=== PATIENT | female | born 1950 | race Caucasian/White ===

== ENCOUNTER 2021-07-25 15:04 | Inpatient (IN) ==
[2021-07-25] MEDS ORDERED: MIDAZOLAM 2 MG/2 ML VIAL ONE (15:29)
[2021-07-25] MEDS ORDERED: MIDAZOLAM 2 MG/2 ML VIAL IV ONE (15:30)
[2021-07-25] MEDS ORDERED: ALBUTEROL 2.5 MG/3 ML NEB RESP TX PRN (15:31)
[2021-07-25] MEDS ORDERED: SODIUM CHLORIDE 0.9% 1,000 ML IV ONE ×2 (15:33→17:06)
[2021-07-25] MEDS ORDERED: SODIUM CHLORIDE 0.9% 1,000 ML IV PRN (15:40)
[2021-07-25] MEDS: NOREPINEPHRINE 8 MG in SODIUM CHLORIDE 0.9% 242 ML IV PRN ×2 (16:00→21:35)
[2021-07-25] MEDS: PANTOPRAZOLE 40 MG VIAL IV SCH (16:06)
[2021-07-25 16:25] LABS: Basophils % 0.2 % (0.0-0.8); Eosinophils % 0.1 % (0.00-10.9); Hemoglobin 10.1 GM/DL (12.0-16.0); Immature Granulocytes % 3.3 %; Immature Granulocytes Absolute 0.43 #; Lymphocytes # 0.8 10*3/uL (1.4-4.0); Lymphocytes % 6.4 % (21.3-54.2); Mean Corpuscular HGB Conc 31.6 GM/DL (32-36); Mean Corpuscular Volume 88.9 FL (87-102); Mean Platelet Volume 12.4 FL (9.6-12.0); Monocytes % 7.4 % (1.7-12.7); Neutrophils % 82.6 % (38.7-73.9); Platelet Count 183 T/CUMM (130-400); Red Cell Distribution Width 17.9 % (9.3-17.3); White Blood Count 12.8 T/CUMM (4-12)
[2021-07-25 16:47] LABS: Arterial Base Excess iSTAT -16 MMOL/L (-2.5-2.5); Arterial Bicarbonate iSTAT 9.3 MMOL/L (20-26); Arterial O2 Saturation iSTAT 97 % (95-100); Arterial PCO2 iSTAT 21 MM HG (35-48); Arterial PO2 iSTAT 99 MM HG (80-95); Arterial Total CO2 iSTAT 10 MMO/L (23-27); Arterial pH iSTAT 7.261 (7.35-7.45)
[2021-07-25 16:47] LABS: Albumin 1.7 G/DL (3.4-5.0); Bilirubin,Total 0.6 MG/DL (0.20-1.00); Osmolality,Calculated 308.1 MOS/KG (273-304); Potassium 5.2 MMOL/L (3.5-5.1); Total Protein 5.4 G/DL (6.4-8.2)
[2021-07-25] MEDS ORDERED: MORPHINE 2 MG/1 ML SYRINGE IV ONE (16:47)
[2021-07-25] MEDS ORDERED: SODIUM CHLORIDE 0.9% 1,100 ML IV ONE (17:23)
[2021-07-25 17:30] LABS: Bilirubin,Urine Small mg/dL (Negative); Blood, Urine Large mg/dL (Negative); Glucose,Urine (UA) Negative (Negative); Ketones,Urine Trace mg/dL (Negative); Nitrite,Urine Positive (Negative); Protein,Urine >=300 mg/dL (Negative); Urine Appearance Cloudy (Clear); Urine Color Red (Yellow); Urine pH 8.5 (4.5-8.0)
[2021-07-25] MEDS ORDERED: SODIUM BICARBONATE 50 MEQ/50 ML VIAL IV ONE (17:30)
[2021-07-25 17:31] LABS: Eosinophils 1 % (0-10); Lymphocytes 4 % (20-55); Total Cells Counted 100
[2021-07-25 17:31] LABS: Urine Urobilinogen 0.2 eU/dL (<2.0)
[2021-07-25 17:32] LABS: Burr Cells Slight
[2021-07-25 18:05] LABS: Bacteria,Urine Few /HPF (Few); Mucus,Urine Moderate /LPF (Occasional); RBC,Urine 968 /HPF (0-4)
[2021-07-25] MEDS: cefTRIAXone 1,000 MG in SODIUM CHLORIDE 0.9% 100 ML IV SCH (18:50)
[2021-07-25 19:06] LABS: PT Patient Result > 178.9 SECS (10.5-12.0)
[2021-07-25 19:08] LABS: INR > 17.6
[2021-07-25] MEDS ORDERED: PHYTONADIONE 10 MG/1 ML AMP SUBCUT ONE (19:17)
[2021-07-25] MEDS: ALBUTEROL/IPRATROPIUM 3 ML NEB RESP TX SCH (19:50)
[2021-07-25] MEDS: SODIUM BICARB INJ 150 MEQ in STERILE WATER INJ 850 ML IV SCH (19:59)
[2021-07-25] MEDS ORDERED: NOREPINEPHRINE 4 MG/4 ML VIAL IV ONE (21:36)
[2021-07-25 22:25] LABS: Hematocrit 28.1 VOL% (35.7-47.0)
[2021-07-25 22:35] LABS: INR 3.8; PT Patient Result 38.2 SECS (10.5-12.0)
[2021-07-25 22:42] LABS: Calcium 7.5 MG/DL (8.5-10.1); Osmolality,Calculated 319.9 MOS/KG (273-304); Potassium 4.5 MMOL/L (3.5-5.1)
[2021-07-26] MEDS: ALBUTEROL/IPRATROPIUM 3 ML NEB RESP TX SCH ×4 (00:23→18:53)
[2021-07-26] MEDS: NOREPINEPHRINE 8 MG in SODIUM CHLORIDE 0.9% 242 ML IV PRN ×2 (01:30→05:27)
[2021-07-26] MEDS: SODIUM BICARB INJ 150 MEQ in STERILE WATER INJ 850 ML IV SCH (05:27)
[2021-07-26 05:41] LABS: Basophils % 0.3 % (0.0-0.8); Eosinophils % 0.1 % (0.00-10.9); Hematocrit 27.7 VOL% (35.7-47.0); Hemoglobin 9.1 GM/DL (12.0-16.0); Immature Granulocytes % 4.7 %; Immature Granulocytes Absolute 0.61 #; Lymphocytes # 0.8 10*3/uL (1.4-4.0); Lymphocytes % 6.3 % (21.3-54.2); Mean Corpuscular HGB Conc 32.9 GM/DL (32-36); Mean Platelet Volume 11.6 FL (9.6-12.0); Monocytes # 0.9 10*3/uL (0.11-0.8); Monocytes % 6.5 % (1.7-12.7); Neutrophils % 82.1 % (38.7-73.9); Platelet Count 199 T/CUMM (130-400); Red Blood Count 3.22 MC/CUMM (3.8-5.5); Red Cell Distribution Width 17.8 % (9.3-17.3); White Blood Count 13.1 T/CUMM (4-12)
[2021-07-26 06:01] LABS: Calcium 7.7 MG/DL (8.5-10.1); INR 5.5; Osmolality,Calculated 315.7 MOS/KG (273-304); Potassium 4.3 MMOL/L (3.5-5.1)
[2021-07-26 06:05] LABS: Band Neutrophils 1 % (0-10); Lymphocytes 8 % (20-55); Platelet Estimate Normal; Poikilocytosis Slight; Total Cells Counted 100
[2021-07-26 06:06] LABS: Acanthocytes 1+
[2021-07-26] MEDS: SODIUM BICARB INJ 100 MEQ in STERILE WATER INJ 900 ML IV SCH ×4 (10:42→21:33)
[2021-07-26] MEDS ORDERED: ZINC OXIDE 16% PASTE 57 GM TUBE TOP PRN (12:03)
[2021-07-26] MEDS: metroNIDAZOLE INJ 500 MG/100 ML PREMIX IV SCH ×2 (14:30→21:33)
[2021-07-26] MEDS: LEVOFLOXACIN INJ 750 MG/150 ML PREMIX IV SCH (15:30)
[2021-07-26 16:41] LABS: Basophils % 0.2 % (0.0-0.8); Eosinophils % 0.2 % (0.00-10.9); Hematocrit 26.5 VOL% (35.7-47.0); Hemoglobin 8.7 GM/DL (12.0-16.0); Immature Granulocytes % 4.9 %; Lymphocytes # 0.8 10*3/uL (1.4-4.0); Lymphocytes % 9.8 % (21.3-54.2); Mean Corpuscular HGB Conc 32.8 GM/DL (32-36); Mean Corpuscular Volume 85.2 FL (87-102); Mean Platelet Volume 11.6 FL (9.6-12.0); Monocytes # 0.4 10*3/uL (0.11-0.8); Monocytes % 4.4 % (1.7-12.7); Neutrophils % 80.5 % (38.7-73.9); Platelet Count 187 T/CUMM (130-400); Red Blood Count 3.11 MC/CUMM (3.8-5.5); Red Cell Distribution Width 17.7 % (9.3-17.3); White Blood Count 8.2 T/CUMM (4-12)
[2021-07-26 17:03] LABS: Albumin 1.6 G/DL (3.4-5.0); Bilirubin,Total 0.6 MG/DL (0.20-1.00); Calcium 7.9 MG/DL (8.5-10.1); Osmolality,Calculated 305.4 MOS/KG (273-304); Potassium 3.6 MMOL/L (3.5-5.1); Total Protein 5.1 G/DL (6.4-8.2)
[2021-07-26] MEDS: ACETAMINOPHEN 325 MG TABLET PO PRN (17:15)
[2021-07-26] MEDS: PANTOPRAZOLE 40 MG VIAL IV SCH (17:58)
[2021-07-26] MEDS: cefTRIAXone 1,000 MG in SODIUM CHLORIDE 0.9% 100 ML IV SCH (17:58)
[2021-07-26] MEDS: MORPHINE 2 MG/1 ML SYRINGE IV PRN ×2 (19:36→23:30)
[2021-07-26] MEDS: QUEtiapine 100 MG TABLET PO SCH (21:33)
[2021-07-27] MEDS: ALBUTEROL/IPRATROPIUM 3 ML NEB RESP TX SCH ×4 (00:22→18:53)
[2021-07-27] MEDS: SODIUM BICARB INJ 100 MEQ in STERILE WATER INJ 900 ML IV SCH ×2 (03:23→06:04)
[2021-07-27 05:00] LABS: Basophils % 0.2 % (0.0-0.8); Eosinophils # 0.1 10*3/uL (0.0-0.87); Eosinophils % 1.2 % (0.00-10.9); Hematocrit 25.8 VOL% (35.7-47.0); Hemoglobin 8.6 GM/DL (12.0-16.0); Immature Granulocytes % 6.6 %; Immature Granulocytes Absolute 0.56 #; Lymphocytes % 12.2 % (21.3-54.2); Mean Corpuscular HGB Conc 33.3 GM/DL (32-36); Mean Corpuscular Volume 84.9 FL (87-102); Mean Platelet Volume 11.2 FL (9.6-12.0); Monocytes # 0.5 10*3/uL (0.11-0.8); Neutrophils % 73.8 % (38.7-73.9); Platelet Count 165 T/CUMM (130-400); Red Blood Count 3.04 MC/CUMM (3.8-5.5); Red Cell Distribution Width 17.4 % (9.3-17.3); White Blood Count 8.5 T/CUMM (4-12)
[2021-07-27 05:11] LABS: PT Patient Result 21.4 SECS (10.5-12.0)
[2021-07-27 05:22] LABS: Eosinophils 1 % (0-10); Hypochromia Slight; Lymphocytes 12 % (20-55); Metamyelocytes 2 %; Platelet Estimate Normal; Total Cells Counted 100
[2021-07-27 05:22] LABS: Albumin 1.5 G/DL (3.4-5.0); Bilirubin,Total 0.7 MG/DL (0.20-1.00); Calcium 7.8 MG/DL (8.5-10.1); Osmolality,Calculated 296.4 MOS/KG (273-304); Potassium 3.5 MMOL/L (3.5-5.1)
[2021-07-27 05:23] LABS: Microcytosis Slight
[2021-07-27] MEDS: metroNIDAZOLE INJ 500 MG/100 ML PREMIX IV SCH ×3 (05:52→21:46)
[2021-07-27] MEDS ORDERED: WARFARIN 4 MG TABLET PO ONE (08:17)
[2021-07-27] MEDS: MORPHINE 2 MG/1 ML SYRINGE IV PRN (09:07)
[2021-07-27] MEDS: HEPARIN DRIP 25,000 UNITS/500 ML PREMIX IV SCH (09:54)
[2021-07-27] MEDS: METOPROLOL SUCCINATE XL 25 MG TABLET PO SCH (12:54)
[2021-07-27 14:09] LABS: Bacteria,Urine Occasional /HPF (Few); Mucus,Urine Occasional /LPF (Occasional); RBC,Urine 163 /HPF (0-4); Squamous Epithelial Cell,Urine Few /HPF (0-10); Triple Phosphate Crystal,Urine Occasional /HPF (Few)
[2021-07-27 14:10] LABS: Glucose,Urine (UA) 100 mg/dL (Negative); Ketones,Urine Negative (Negative); Nitrite,Urine Negative (Negative); Protein,Urine >=300 mg/dL (Negative); Urine Appearance Cloudy (Clear); Urine Color Light Red (Yellow); Urine pH >= 9.0 (4.5-8.0)
[2021-07-27 14:11] LABS: Bilirubin,Urine Small mg/dL (Negative); Blood, Urine Large mg/dL (Negative); Urine Urobilinogen 0.2 eU/dL (<2.0)
[2021-07-27] MEDS: LEVOFLOXACIN INJ 750 MG/150 ML PREMIX IV SCH (15:49)
[2021-07-27] MEDS: cefTRIAXone 1,000 MG in SODIUM CHLORIDE 0.9% 100 ML IV SCH (16:19)
[2021-07-27] MEDS: QUEtiapine 100 MG TABLET PO SCH (21:46)
[2021-07-28] MEDS: ALBUTEROL/IPRATROPIUM 3 ML NEB RESP TX SCH ×4 (00:30→19:00)
[2021-07-28] MEDS: HEPARIN DRIP 25,000 UNITS/500 ML PREMIX IV SCH ×2 (03:10→09:23)
[2021-07-28] MEDS: metroNIDAZOLE INJ 500 MG/100 ML PREMIX IV SCH ×3 (05:47→21:56)
[2021-07-28 06:01] LABS: INR 1.7; PT Patient Result 18.2 SECS (10.5-12.0)
[2021-07-28 06:09] LABS: Calcium 8.3 MG/DL (8.5-10.1); Osmolality,Calculated 291.1 MOS/KG (273-304); Potassium 3.3 MMOL/L (3.5-5.1)
[2021-07-28 06:18] LABS: Basophils % 0.2 % (0.0-0.8); Eosinophils # 0.1 10*3/uL (0.0-0.87); Eosinophils % 0.4 % (0.00-10.9); Hematocrit 25.1 VOL% (35.7-47.0); Hemoglobin 8.2 GM/DL (12.0-16.0); Immature Granulocytes % 6.7 %; Immature Granulocytes Absolute 1.08 #; Lymphocytes # 1.2 10*3/uL (1.4-4.0); Lymphocytes % 7.6 % (21.3-54.2); Mean Corpuscular HGB Conc 32.7 GM/DL (32-36); Mean Corpuscular Volume 86.6 FL (87-102); Mean Platelet Volume 11.9 FL (9.6-12.0); Monocytes # 0.7 10*3/uL (0.11-0.8); Monocytes % 4.5 % (1.7-12.7); Neutrophils % 80.6 % (38.7-73.9); Platelet Count 164 T/CUMM (130-400); Red Cell Distribution Width 16.9 % (9.3-17.3); White Blood Count 16.1 T/CUMM (4-12)
[2021-07-28] MEDS ORDERED: MAGNESIUM SULF RIDER 2 GM/50 ML PREMIX IV ONE (06:23)
[2021-07-28] MEDS ORDERED: POTASSIUM CHLORIDE 20 MEQ TABLET PO PRN ×2 (06:26→08:25)
[2021-07-28] MEDS ORDERED: MAGNESIUM SULF RIDER 2 GM/50 ML PREMIX IV PRN (08:25)
[2021-07-28] MEDS ORDERED: MAGNESIUM SULF RIDER 4 GM/100 ML PREMIX IV PRN (08:25)
[2021-07-28] MEDS ORDERED: ALBUMIN 25% 25 GM/100 ML VIAL IV ONE (08:25)
[2021-07-28] MEDS ORDERED: oxyCODONE/ACETAMINOPHEN 5-325 MG TABLET PO PRN (08:27)
[2021-07-28 08:59] LABS: Band Neutrophils 1 % (0-10); Eosinophils 1 % (0-10); Lymphocytes 4 % (20-55); Polychromasia Slight; Target Cells Few; Total Cells Counted 100
[2021-07-28 09:00] LABS: Platelet Estimate Adequate
[2021-07-28] MEDS: METOPROLOL SUCCINATE XL 25 MG TABLET PO SCH (09:21)
[2021-07-28] MEDS: MORPHINE 2 MG/1 ML SYRINGE IV PRN (09:22)
[2021-07-28 14:40] LABS: Hematocrit 25.2 VOL% (35.7-47.0); Hemoglobin 8.1 GM/DL (12.0-16.0)
[2021-07-28] MEDS: LEVOFLOXACIN INJ 750 MG/150 ML PREMIX IV SCH (15:11)
[2021-07-28] MEDS: cefTRIAXone 1,000 MG in SODIUM CHLORIDE 0.9% 100 ML IV SCH (17:07)
[2021-07-28] MEDS: WARFARIN 4 MG TABLET PO SCH (17:07)
[2021-07-28] MEDS: QUEtiapine 100 MG TABLET PO SCH (21:54)
[2021-07-29] MEDS: ALBUTEROL/IPRATROPIUM 3 ML NEB RESP TX SCH ×5 (00:16→19:18)
[2021-07-29 01:27] LABS: Basophils # 0.1 10*3/uL (0.0-0.2); Basophils % 0.5 % (0.0-0.8); Eosinophils % 0.1 % (0.00-10.9); Hematocrit 29.4 VOL% (35.7-47.0); Hemoglobin 9.4 GM/DL (12.0-16.0); Immature Granulocytes % 8.2 %; Immature Granulocytes Absolute 1.97 #; Lymphocytes # 1.1 10*3/uL (1.4-4.0); Lymphocytes % 4.5 % (21.3-54.2); Mean Corpuscular Volume 87.5 FL (87-102); Mean Platelet Volume 11.9 FL (9.6-12.0); Monocytes # 0.5 10*3/uL (0.11-0.8); Monocytes % 2.1 % (1.7-12.7); NRBC # 0.02 10*3/uL; Neutrophils % 84.6 % (38.7-73.9); Platelet Count 182 T/CUMM (130-400); Red Blood Count 3.36 MC/CUMM (3.8-5.5); Red Cell Distribution Width 16.9 % (9.3-17.3); White Blood Count 24.1 T/CUMM (4-12)
[2021-07-29 01:36] LABS: INR 1.9; PT Patient Result 19.7 SECS (10.5-12.0)
[2021-07-29 01:48] LABS: Lymphocytes 5 % (20-55); Platelet Estimate Adequate; Total Cells Counted 100
[2021-07-29] MEDS: HEPARIN DRIP 25,000 UNITS/500 ML PREMIX IV SCH ×2 (02:07→09:51)
[2021-07-29 02:16] LABS: Calcium 8.3 MG/DL (8.5-10.1); Osmolality,Calculated 292.3 MOS/KG (273-304); Potassium 3.9 MMOL/L (3.5-5.1)
[2021-07-29] MEDS: metroNIDAZOLE INJ 500 MG/100 ML PREMIX IV SCH ×3 (07:10→23:30)
[2021-07-29] MEDS: METOPROLOL SUCCINATE XL 25 MG TABLET PO SCH (08:10)
[2021-07-29] MEDS: SODIUM CHLORIDE 0.9% 500 ML IV SCH ×3 (14:03→15:38)
[2021-07-29] MEDS: LEVOFLOXACIN INJ 750 MG/150 ML PREMIX IV SCH (15:35)
[2021-07-29] MEDS: cefTRIAXone 1,000 MG in SODIUM CHLORIDE 0.9% 100 ML IV SCH (18:04)
[2021-07-29] MEDS: WARFARIN 4 MG TABLET PO SCH (18:04)
[2021-07-29] MEDS: SIMVASTATIN 40 MG TABLET PO SCH (20:58)
[2021-07-29] MEDS: QUEtiapine 100 MG TABLET PO SCH (22:56)
[2021-07-30] MEDS: ALBUTEROL/IPRATROPIUM 3 ML NEB RESP TX SCH ×4 (00:03→19:10)
[2021-07-30 03:16] LABS: Basophils # 0.1 10*3/uL (0.0-0.2); Basophils % 0.3 % (0.0-0.8); Eosinophils % 0.1 % (0.00-10.9); Hemoglobin 8.2 GM/DL (12.0-16.0); Immature Granulocytes % 8.5 %; Immature Granulocytes Absolute 2.66 #; Lymphocytes # 1.3 10*3/uL (1.4-4.0); Lymphocytes % 4.3 % (21.3-54.2); Mean Corpuscular HGB Conc 31.5 GM/DL (32-36); Mean Corpuscular Volume 87.2 FL (87-102); Mean Platelet Volume 11.7 FL (9.6-12.0); Monocytes # 0.7 10*3/uL (0.11-0.8); Monocytes % 2.1 % (1.7-12.7); NRBC # 0.02 10*3/uL; Neutrophils % 84.7 % (38.7-73.9); Platelet Count 192 T/CUMM (130-400); Red Blood Count 2.98 MC/CUMM (3.8-5.5); Red Cell Distribution Width 16.8 % (9.3-17.3); White Blood Count 31.3 T/CUMM (4-12)
[2021-07-30 03:34] LABS: Calcium 8.3 MG/DL (8.5-10.1); Osmolality,Calculated 294.5 MOS/KG (273-304); Potassium 3.8 MMOL/L (3.5-5.1)
[2021-07-30 03:42] LABS: Hypochromia Slight; Lymphocytes 5 % (20-55); Platelet Estimate Adequate; Total Cells Counted 100
[2021-07-30] MEDS: metroNIDAZOLE INJ 500 MG/100 ML PREMIX IV SCH ×3 (06:26→21:35)
[2021-07-30] MEDS: METOPROLOL SUCCINATE XL 25 MG TABLET PO SCH (09:02)
[2021-07-30] MEDS: HEPARIN DRIP 25,000 UNITS/500 ML PREMIX IV SCH (09:02)
[2021-07-30] MEDS: LACTATED RINGERS 1,000 ML IV SCH (10:59)
[2021-07-30] MEDS: LEVOFLOXACIN INJ 750 MG/150 ML PREMIX IV SCH (14:43)
[2021-07-30] MEDS ORDERED: FUROSEMIDE 40 MG/4 ML VIAL IV ONE (14:54)
[2021-07-30] MEDS: WARFARIN 4 MG TABLET PO SCH (17:11)
[2021-07-30] MEDS: cefTRIAXone 1,000 MG in SODIUM CHLORIDE 0.9% 100 ML IV SCH (17:12)
[2021-07-30] MEDS: QUEtiapine 100 MG TABLET PO SCH (21:34)
[2021-07-30] MEDS: SIMVASTATIN 40 MG TABLET PO SCH (21:34)
[2021-07-31] MEDS: ALBUTEROL/IPRATROPIUM 3 ML NEB RESP TX SCH ×4 (00:10→20:00)
[2021-07-31 04:46] LABS: Basophils # 0.6 10*3/uL (0.0-0.2); Basophils % 1.5 % (0.0-0.8); Hematocrit 25.9 VOL% (35.7-47.0); Hemoglobin 8.5 GM/DL (12.0-16.0); Immature Granulocytes % 8.2 %; Lymphocytes # 1.5 10*3/uL (1.4-4.0); Lymphocytes % 3.8 % (21.3-54.2); Mean Corpuscular HGB Conc 32.8 GM/DL (32-36); Mean Corpuscular Volume 87.5 FL (87-102); Mean Platelet Volume 12.2 FL (9.6-12.0); Monocytes # 0.9 10*3/uL (0.11-0.8); Monocytes % 2.2 % (1.7-12.7); NRBC # 0.03 10*3/uL; Neutrophils % 84.3 % (38.7-73.9); Platelet Count 169 T/CUMM (130-400); Red Blood Count 2.96 MC/CUMM (3.8-5.5); Red Cell Distribution Width 17.1 % (9.3-17.3)
[2021-07-31 04:50] LABS: White Blood Count 40.4 T/CUMM (4-12)
[2021-07-31 04:53] LABS: Band Neutrophils 1 % (0-10); Lymphocytes 1 % (20-55); Total Cells Counted 100
[2021-07-31 04:54] LABS: Microcytosis 1+
[2021-07-31 05:13] LABS: Calcium 8.1 MG/DL (8.5-10.1); Osmolality,Calculated 294.7 MOS/KG (273-304)
[2021-07-31] MEDS: metroNIDAZOLE INJ 500 MG/100 ML PREMIX IV SCH ×2 (06:30→15:03)
[2021-07-31 06:45] LABS: INR 2.7; PT Patient Result 28.2 SECS (10.5-12.0)
[2021-07-31] MEDS: LACTATED RINGERS 1,000 ML IV SCH (08:03)
[2021-07-31] MEDS: HEPARIN DRIP 25,000 UNITS/500 ML PREMIX IV SCH (08:03)
[2021-07-31] MEDS: METOPROLOL SUCCINATE XL 25 MG TABLET PO SCH (09:55)
[2021-07-31] MEDS ORDERED: FUROSEMIDE 40 MG/4 ML VIAL IV ONE (13:31)
[2021-07-31] MEDS ORDERED: TUBERCULIN SKIN TEST 0.1 ML SYRINGE INTRADERM ONE (15:00)
[2021-07-31] MEDS: LEVOFLOXACIN INJ 750 MG/150 ML PREMIX IV SCH (15:02)
[2021-07-31] MEDS ORDERED: NOREPINEPHRINE 4 MG/4 ML VIAL IV ONE (18:31)
[2021-07-31] MEDS ORDERED: NOREPINEPHRINE 8 MG in SODIUM CHLORIDE 0.9% 242 ML IV PRN (18:31)
[2021-07-31] MEDS ORDERED: ETOMIDATE 20 MG/10 ML VIAL IV ONE ×3 (18:34→18:39)
[2021-07-31] MEDS ORDERED: ROCURONIUM 100 MG/10 ML VIAL IV ONE ×2 (18:34→18:39)
[2021-07-31 18:38] LABS: Arterial Base Excess iSTAT -1 MMOL/L (-2.5-2.5); Arterial Bicarbonate iSTAT 26.7 MMOL/L (20-26); Arterial O2 Saturation iSTAT 99 % (95-100); Arterial PCO2 iSTAT 59 MM HG (35-48); Arterial PO2 iSTAT 175 MM HG (80-95); Arterial Total CO2 iSTAT 28 MMO/L (23-27); Arterial pH iSTAT 7.262 (7.35-7.45)
[2021-07-31] MEDS ORDERED: SODIUM CHLORIDE 0.9% 1,000 ML IV ONE (18:41)
[2021-07-31] MEDS ORDERED: EPINEPHrine 1 MG/10 ML SYRINGE ONE (18:47)
[2021-07-31] MEDS ORDERED: PHENYLEPHRINE DRIP 40 MG/250 ML PREMIX IV ONE (18:47)
[2021-07-31] MEDS ORDERED: EPINEPHrine 1 MG/10 ML SYRINGE IV ONE (18:48)
[2021-07-31] MEDS ORDERED: MIDAZOLAM 2 MG/2 ML VIAL IV PRN (18:51)
[2021-07-31] MEDS ORDERED: PHENYLEPHRINE DRIP 40 MG/250 ML PREMIX IV PRN (18:53)
[2021-07-31] MEDS ORDERED: MIDAZOLAM 100 MG in SODIUM CHLORIDE 0.9% 80 ML IV PRN (18:53)
[2021-07-31 19:53] LABS: ABG HCO3 20.3 MMOL/L (20-26); ABG Oxygen Saturation 99.5 % (95-100); ABG PCO2 48.8 MM HG (35-48); ABG PH 7.264 (7.35-7.45); ABG TCO2 20.6 MMOL/L (23-27)
[2021-07-31 19:59] LABS: Basophils % 0.1 % (0.0-0.8); Hematocrit 34.5 VOL% (35.7-47.0); Hemoglobin 10.6 GM/DL (12.0-16.0); Immature Granulocytes % 15.4 %; Immature Granulocytes Absolute 6.15 #; Lymphocytes # 1.7 10*3/uL (1.4-4.0); Lymphocytes % 4.3 % (21.3-54.2); Mean Corpuscular HGB Conc 30.7 GM/DL (32-36); Mean Corpuscular Volume 91.8 FL (87-102); Mean Platelet Volume 11.2 FL (9.6-12.0); Monocytes % 2.4 % (1.7-12.7); NRBC # 0.13 10*3/uL; Neutrophils % 77.8 % (38.7-73.9); Platelet Count 228 T/CUMM (130-400); Red Blood Count 3.76 MC/CUMM (3.8-5.5); Red Cell Distribution Width 17.5 % (9.3-17.3); White Blood Count 39.8 T/CUMM (4-12)
[2021-07-31 20:32] LABS: Albumin 1.4 G/DL (3.4-5.0); Bilirubin,Total 0.4 MG/DL (0.20-1.00); Calcium 7.3 MG/DL (8.5-10.1); Osmolality,Calculated 303.3 MOS/KG (273-304); Potassium 5.1 MMOL/L (3.5-5.1); Total Protein 4.2 G/DL (6.4-8.2)
[2021-07-31 20:41] LABS: Band Neutrophils 9 % (0-10); Lymphocytes 5 % (20-55); Myelocytes 2 %; Nucleated Red Blood Cells 1 (0-5); Total Cells Counted 100
[2021-07-31 20:44] LABS: Platelet Estimate Adequate; Polychromasia 1+
[2021-07-31 20:45] LABS: Hypochromia Slight
[2021-07-31] MEDS: SIMVASTATIN 40 MG TABLET PO SCH (21:31)
[2021-07-31] MEDS: NOREPINEPHRINE 16 MG in SODIUM CHLORIDE 0.9% 234 ML IV PRN (21:54)
[2021-08-01 00:38] LABS: ABG HCO3 18.7 MMOL/L (20-26); ABG Oxygen Saturation 98.8 % (95-100); ABG PH 7.236 (7.35-7.45); ABG TCO2 19.1 MMOL/L (23-27)
[2021-08-01] MEDS: ALBUTEROL/IPRATROPIUM 3 ML NEB RESP TX SCH ×4 (00:44→19:09)
[2021-08-01] MEDS ORDERED: ALBUMIN 25% 25 GM/100 ML VIAL IV ONE (00:53)
[2021-08-01] MEDS ORDERED: SODIUM BICARBONATE 50 MEQ/50 ML VIAL IV ONE (01:04)
[2021-08-01] MEDS: NOREPINEPHRINE 16 MG in SODIUM CHLORIDE 0.9% 234 ML IV PRN ×4 (02:33→17:30)
[2021-08-01 04:13] LABS: ABG Base Excess -4.9 MMOL/L (-2.5-2.5); ABG HCO3 20.3 MMOL/L (20-26); ABG PCO2 44.4 MM HG (35-48); ABG PH 7.291 (7.35-7.45); ABG TCO2 20.1 MMOL/L (23-27)
[2021-08-01 04:14] LABS: Basophils # 0.1 10*3/uL (0.0-0.2); Basophils % 0.1 % (0.0-0.8); Hematocrit 28.4 VOL% (35.7-47.0); Hemoglobin 8.3 GM/DL (12.0-16.0); Immature Granulocytes Absolute 12.41 #; Lymphocytes # 2.2 10*3/uL (1.4-4.0); Lymphocytes % 3.5 % (21.3-54.2); Mean Corpuscular HGB Conc 29.2 GM/DL (32-36); Mean Corpuscular Volume 95.9 FL (87-102); Mean Platelet Volume 11.3 FL (9.6-12.0); Monocytes # 1.9 10*3/uL (0.11-0.8); Monocytes % 3.1 % (1.7-12.7); NRBC # 0.45 10*3/uL; Neutrophils % 73.3 % (38.7-73.9); Platelet Count 227 T/CUMM (130-400); Red Blood Count 2.96 MC/CUMM (3.8-5.5); Red Cell Distribution Width 17.5 % (9.3-17.3)
[2021-08-01 04:18] LABS: White Blood Count 62.1 T/CUMM (4-12)
[2021-08-01 04:21] LABS: PT Patient Result 39.9 SECS (10.5-12.0)
[2021-08-01 04:40] LABS: Calcium 8.1 MG/DL (8.5-10.1); Osmolality,Calculated 303.4 MOS/KG (273-304); Potassium 5.7 MMOL/L (3.5-5.1)
[2021-08-01 04:44] LABS: Band Neutrophils 3 % (0-10); Hypochromia Slight; Lymphocytes 8 % (20-55); Metamyelocytes 4 %; Microcytosis 1+; Myelocytes 2 %; Nucleated Red Blood Cells 1 (0-5); Total Cells Counted 100
[2021-08-01 04:45] LABS: Platelet Estimate Normal
[2021-08-01] MEDS: cefTRIAXone 1,000 MG in SODIUM CHLORIDE 0.9% 100 ML IV SCH (08:01)
[2021-08-01] MEDS: ACETAMINOPHEN 325 MG TABLET PO PRN (08:25)
[2021-08-01] MEDS: methylPREDNISolone SOD SUC 40 MG/1 ML VIAL IV SCH ×2 (09:30→17:11)
[2021-08-01] MEDS: MULTIVITAMIN LIQUID (CENTRUM) 60 ML BOTTLE NG SCH (09:30)
[2021-08-01 10:56] VITALS: BP 140/54
[2021-08-01] MEDS: SIMVASTATIN 40 MG TABLET PO SCH (20:46)
[2021-08-02] MEDS: ALBUTEROL/IPRATROPIUM 3 ML NEB RESP TX SCH ×2 (00:44→07:51)
[2021-08-02 02:48] LABS: ABG Base Excess -6.9 MMOL/L (-2.5-2.5); ABG HCO3 18.8 MMOL/L (20-26); ABG Oxygen Saturation 99.6 % (95-100); ABG PCO2 27.7 MM HG (35-48); ABG PH 7.398 (7.35-7.45)
[2021-08-02 02:49] LABS: Hematocrit 24.8 VOL% (35.7-47.0); Hemoglobin 7.8 GM/DL (12.0-16.0); Immature Granulocytes % 8.1 %; Immature Granulocytes Absolute 3.51 #; Lymphocytes # 2.7 10*3/uL (1.4-4.0); Lymphocytes % 6.3 % (21.3-54.2); Mean Corpuscular HGB Conc 31.5 GM/DL (32-36); Mean Corpuscular Volume 89.5 FL (87-102); Mean Platelet Volume 11.5 FL (9.6-12.0); Monocytes # 0.6 10*3/uL (0.11-0.8); Monocytes % 1.5 % (1.7-12.7); NRBC # 0.14 10*3/uL; Neutrophils % 84.1 % (38.7-73.9); Red Blood Count 2.77 MC/CUMM (3.8-5.5); Red Cell Distribution Width 17.2 % (9.3-17.3)
[2021-08-02 02:54] LABS: Platelet Count 130 T/CUMM (130-400); White Blood Count 43.3 T/CUMM (4-12)
[2021-08-02] MEDS ORDERED: MORPHINE 2 MG/1 ML SYRINGE IV ONE (02:59)
[2021-08-02] MEDS ORDERED: MORPHINE 2 MG/1 ML SYRINGE ONE (03:01)
[2021-08-02] MEDS: NOREPINEPHRINE 16 MG in SODIUM CHLORIDE 0.9% 234 ML IV PRN (03:06)
[2021-08-02 03:07] LABS: Band Neutrophils 1 % (0-10); INR 2.9; Lymphocytes 8 % (20-55); PT Patient Result 29.8 SECS (10.5-12.0); Total Cells Counted 100
[2021-08-02 03:08] LABS: Hypersegmented Neutrophil SLIGHT; Hypochromia Slight; Microcytosis 1+; Platelet Estimate Adequate
[2021-08-02 03:10] LABS: Calcium 7.7 MG/DL (8.5-10.1); Osmolality,Calculated 314.1 MOS/KG (273-304); Potassium 5.3 MMOL/L (3.5-5.1)
[2021-08-02] MEDS: methylPREDNISolone SOD SUC 40 MG/1 ML VIAL IV SCH ×2 (03:10→09:25)
[2021-08-02] MEDS: MORPHINE 2 MG/1 ML SYRINGE IV PRN ×4 (05:02→09:29)
[2021-08-02] MEDS ORDERED: LEVOFLOXACIN INJ 750 MG/150 ML PREMIX IV SCH (09:00)
[2021-08-02] MEDS: MULTIVITAMIN LIQUID (CENTRUM) 60 ML BOTTLE NG SCH (09:24)
== END 2021-08-02 12:55 | disposition expired | DRG 871 ==
LOC: SUATTDRO 15:25 → N.CC 15:25 → N.TELEN 07-28 09:14 → N.ICU 07-31 18:40
PROVIDERS: ADMIT Family Medicine; ATTEND Internal Medicine